=== PATIENT | male | born 1990 | race Caucasian/White ===

== ENCOUNTER 2017-02-15 10:22 | Emergency (ER) | payer OTHER ==
[2017-02-15 11:57] LABS: HEMOGLOBIN 10.6 gm/dl (14.0-17.5); RED BLOOD COUNT 3.27 M/UL (4.20-5.50); WHITE BLOOD COUNT 9.6 K/UL (4.5-11.0)
[2017-06-19] MEDS ORDERED: HYDRALAZINE HCL50 MG PO (09:21)
[2017-06-19] MEDS ORDERED: PHOSLO 667 MG667 MG PO (09:24)
[2017-06-19] MEDS ORDERED: BUDESONIDE EC3 MG PO (09:25)
== END 2017-02-15 17:35 ==
LOC: ER1 10:22
PROVIDERS: Emergency Medicine
DX: K52.9 Noninfective gastroenteritis and colitis, unspecified (principal); D69.6 Thrombocytopenia, unspecified; D64.9 Anemia, unspecified; I12.0 Hypertensive chronic kidney disease with stage 5 chronic kidney disease or end stage renal disease; N18.6 End stage renal disease; N28.89 Other specified disorders of kidney and ureter; G40.909 Epilepsy, unspecified, not intractable, without status epilepticus
CPT/HCPCS: 36415; 80053; 81001; 83605; 84484; 85025; 87040; 87086; 93005; 96361; 96374; 96375; 96376; 99284; J1956; J2270; J2405

== ENCOUNTER 2017-03-03 11:05 | Emergency (ER) | payer MEDICARE, OTHER ==
[2017-03-03 13:04] LABS: HEMOGLOBIN 12.1 gm/dl (14.0-17.5); RED BLOOD COUNT 3.81 M/UL (4.20-5.50); WHITE BLOOD COUNT 9.3 K/UL (4.5-11.0)
[2017-06-19] MEDS ORDERED: HYDRALAZINE HCL50 MG PO (09:21)
[2017-06-19] MEDS ORDERED: PHOSLO 667 MG667 MG PO (09:24)
[2017-06-19] MEDS ORDERED: BUDESONIDE EC3 MG PO (09:25)
== END 2017-03-03 19:17 | disposition home or self-care (01) ==
LOC: ER1 11:05
PROVIDERS: Specialist/Technologist Athletic Trainer
DX: K62.89 Other specified diseases of anus and rectum (principal); D69.6 Thrombocytopenia, unspecified; R11.0 Nausea; N18.6 End stage renal disease; F17.200 Nicotine dependence, unspecified, uncomplicated; Z99.2 Dependence on renal dialysis; Z79.891 Long term (current) use of opiate analgesic; Z79.899 Other long term (current) drug therapy
CPT/HCPCS: 36415; 80053; 83605; 83690; 83735; 84100; 85025; 93005; 96361; 96374; 96375; 99284; J2270; J2405

== ENCOUNTER 2017-03-05 20:55 | Inpatient (IN) | payer MEDICARE, OTHER ==
[~2017-03-05] VITALS: Ht 162.6 cm; Wt 55.9 kg
[2017-03-05 22:06] LABS: WHITE BLOOD COUNT 8.7 K/UL (4.5-11.0)
[2017-03-05 22:07] LABS: HEMOGLOBIN 8.9 gm/dl (14.0-17.5); RED BLOOD COUNT 2.86 M/UL (4.20-5.50)
[2017-03-06] MEDS ORDERED: NORVASC 5 MG TAB5 MG PO (02:50)
[2017-03-06] MEDS ORDERED: CALCIUM ACETAT667 MG PO (02:51)
[2017-03-06] MEDS ORDERED: COREG 12.5MG12.5 MG PO (02:52)
[2017-03-06] MEDS ORDERED: FAMOTIDINE20 MG PO (02:53)
[2017-03-06] MEDS ORDERED: LASIX 40 MG TAB40 MG PO (02:54)
[2017-03-06] MEDS ORDERED: HYDRALAZINE HCL50 MG PO (02:54)
[2017-03-06] MEDS ORDERED: ROXICODONE TAB 55 MG PO (02:55)
[2017-03-06 04:19] LABS: HEMOGLOBIN 7.1 gm/dl (14.0-17.5); WHITE BLOOD COUNT 6.7 K/UL (4.5-11.0)
[2017-03-06 04:22] LABS: RED BLOOD COUNT 2.25 M/UL (4.20-5.50)
[2017-03-07 06:00] LABS: RED BLOOD COUNT 2.98 M/UL (4.20-5.50); WHITE BLOOD COUNT 7.5 K/UL (4.5-11.0)
[2017-03-07 10:54] LABS: HEMOGLOBIN 9.3 gm/dl (14.0-17.5); RED BLOOD COUNT 3.08 M/UL (4.20-5.50); WHITE BLOOD COUNT 7.2 K/UL (4.5-11.0)
[2017-03-07 13:34] LABS: ACINETOBACTER BAUMANNII Not Detected (Negative); CANDIDA ALBICANS Not Detected (Negative); CANDIDA KRUSEI Not Detected (Negative); CANDIDA TROPICALIS Not Detected (Negative); ENTEROCOCCUS Not Detected (Negative); ESCHERICHIA COLI Not Detected (Negative); HAEMOPHILUS INFLUENZAE Not Detected (Negative); KLEBSIELLA OXYTOCA Not Detected (Negative); KLEBSIELLA PNEUMONIAE Not Detected (Negative); KPC-CARBAPENEM-RESISTANCE GENE Not Detected (Negative); PROTEUS Not Detected (Negative); PSEUDOMONAS AERUGINOSA Not Detected (Negative); SERRATIA MARCESANS Not Detected (Negative); STAPHYLOCOCCUS AUREUS Not Detected (Negative); STREP AGALACTIAE (GROUP B) Not Detected (Negative); STREP PYOGENES (GROUP A) Not Detected (Negative); STREPTOCOCCUS Not Detected (Negative); mecA (METHICILLIN RESIST GENE Not Detected (Negative); vanA/B (VANCOMYCIN RESIST GENE Not Detected (Negative)
[2017-03-07 14:47] LABS: STAPHYLOCOCCUS DETECTED (Negative)
[2017-03-07] MEDS ORDERED: FLAGYL500 MG PO (18:58)
[2017-03-07] MEDS ORDERED: PHENERGAN 25 MG25 M1 PO (18:58)
[2017-06-19] MEDS ORDERED: HYDRALAZINE HCL50 MG PO (09:21)
[2017-06-19] MEDS ORDERED: PHOSLO 667 MG667 MG PO (09:24)
[2017-06-19] MEDS ORDERED: BUDESONIDE EC3 MG PO (09:25)
== END 2017-03-07 19:14 | disposition home or self-care (01) | DRG 393 ==
LOC: ER1 20:55 → ZEROF 03-06 00:54 → MED SURG 4 03-06 00:54
PROVIDERS: Internal Medicine; Internal Medicine Nephrology; Student in an Organized Health Care Education/Training Program; ADMIT Hospitalist
DX: K62.89 Other specified diseases of anus and rectum (principal); N18.6 End stage renal disease; I12.0 Hypertensive chronic kidney disease with stage 5 chronic kidney disease or end stage renal disease; D61.818 Other pancytopenia; D69.6 Thrombocytopenia, unspecified; K52.9 Noninfective gastroenteritis and colitis, unspecified; Z99.2 Dependence on renal dialysis; F17.210 Nicotine dependence, cigarettes, uncomplicated; Z79.899 Other long term (current) drug therapy
CPT/HCPCS: 36415; 36430; 71010; 74000; 80053; 80202; 82607; 82746; 83010; 83605; 83615; 83690; 83735; 83921; 84100; 85007; 85025; 85027; 85045; 85610; 86850; 86900; 86901; 86920; 87040; 87077; 87150; 87186; 90935; 93005; 96361; 96374; 96375; 96376; 99284; J1956; J2270; J2405; J3370; J7030; J7040; J7070; P9016

== ENCOUNTER 2017-03-11 20:40 | Inpatient (IN) | payer MEDICARE, OTHER ==
[~2017-03-11] VITALS: Ht 162.6 cm; Wt 54.4 kg
[~2017-03-11 20:40] MED LIST: CALCIUM ACETAT667 MG PO; COREG 12.5MG12.5 MG PO; FAMOTIDINE20 MG PO; FLAGYL500 MG PO; HYDRALAZINE HCL50 MG PO; LASIX 40 MG TAB40 MG PO; NORVASC 5 MG TAB5 MG PO; PHENERGAN 25 MG25 M1 PO; ROXICODONE TAB 55 MG PO
[2017-03-11 22:58] LABS: RED BLOOD COUNT 4.05 M/UL (4.20-5.50); WHITE BLOOD COUNT 15.4 K/UL (4.5-11.0)
[2017-03-11 23:00] LABS: HEMOGLOBIN 12.4 gm/dl (14.0-17.5)
[2017-03-12 07:58] LABS: HEMOGLOBIN 9.1 gm/dl (14.0-17.5)
[2017-03-12] MEDS ORDERED: LEVAQUIN500 MG PO (10:20)
[2017-03-13 04:52] LABS: HEMOGLOBIN 8.8 gm/dl (14.0-17.5)
[2017-03-13 04:53] LABS: WHITE BLOOD COUNT 7.1 K/UL (4.5-11.0)
[2017-03-14 04:19] LABS: HEMOGLOBIN 8.1 gm/dl (14.0-17.5); RED BLOOD COUNT 2.7 M/UL (4.20-5.50); WHITE BLOOD COUNT 6.8 K/UL (4.5-11.0)
[2017-06-19] MEDS ORDERED: HYDRALAZINE HCL50 MG PO (09:21)
[2017-06-19] MEDS ORDERED: PHOSLO 667 MG667 MG PO (09:24)
[2017-06-19] MEDS ORDERED: BUDESONIDE EC3 MG PO (09:25)
== END 2017-03-14 17:00 | disposition home or self-care (01) | DRG 391 ==
LOC: ER1 20:40 → ZEROF 03-12 01:45 → MED SURG 4 03-12 01:45
PROVIDERS: Internal Medicine; Internal Medicine Infectious Disease; Physician Assistant; ADMIT Internal Medicine
DX: A09 Infectious gastroenteritis and colitis, unspecified (principal); N18.6 End stage renal disease; I12.0 Hypertensive chronic kidney disease with stage 5 chronic kidney disease or end stage renal disease; N02.8 Recurrent and persistent hematuria with other morphologic changes; R18.8 Other ascites; D63.1 Anemia in chronic kidney disease; D69.6 Thrombocytopenia, unspecified; Z99.2 Dependence on renal dialysis; Z79.899 Other long term (current) drug therapy; F17.200 Nicotine dependence, unspecified, uncomplicated; N25.0 Renal osteodystrophy
CPT/HCPCS: 36415; 80048; 80053; 82550; 82553; 82728; 83540; 83550; 83605; 83690; 83735; 83874; 83880; 84100; 84484; 85025; 85027; 86140; 87040; 90935; 90937; 93005; 96374; 96375; 99285; J0360; J1644; J1956; J2270; J2405; J2550; J7030

== ENCOUNTER 2017-03-19 10:32 | Observation (INO) | payer MEDICARE, OTHER ==
[~2017-03-19] VITALS: Ht 162.6 cm; Wt 55.9 kg
[~2017-03-19 10:32] MED LIST changes: +LEVAQUIN500 MG PO
[2017-03-19 11:23] LABS: RED BLOOD COUNT 4.52 M/UL (4.20-5.50); WHITE BLOOD COUNT 13.5 K/UL (4.5-11.0)
[2017-03-19 11:24] LABS: HEMOGLOBIN 13.7 gm/dl (14.0-17.5)
[2017-03-20 04:52] LABS: HEMOGLOBIN 8.2 gm/dl (14.0-17.5); RED BLOOD COUNT 2.77 M/UL (4.20-5.50); WHITE BLOOD COUNT 8.9 K/UL (4.5-11.0)
[2017-03-20] MEDS ORDERED: PERCOCET 5/325 T1 EA PO (19:48)
[2017-06-19] MEDS ORDERED: HYDRALAZINE HCL50 MG PO (09:21)
[2017-06-19] MEDS ORDERED: PHOSLO 667 MG667 MG PO (09:24)
[2017-06-19] MEDS ORDERED: BUDESONIDE EC3 MG PO (09:25)
== END 2017-03-20 20:35 | disposition home or self-care (01) ==
LOC: ER1 10:32 → ZEROF 15:22 → MED SURG 4 15:22
PROVIDERS: Emergency Medicine; ADMIT Family Medicine
DX: K52.9 Noninfective gastroenteritis and colitis, unspecified (principal); R18.8 Other ascites; D69.6 Thrombocytopenia, unspecified; R10.9 Unspecified abdominal pain; D63.1 Anemia in chronic kidney disease; I12.9 Hypertensive chronic kidney disease with stage 1 through stage 4 chronic kidney disease, or unspecified chronic kidney disease; N18.6 End stage renal disease; D61.818 Other pancytopenia; Z87.438 Personal history of other diseases of male genital organs; Z79.891 Long term (current) use of opiate analgesic; Z79.899 Other long term (current) drug therapy
CPT/HCPCS: 36415; 80048; 80053; 82150; 83605; 83690; 83735; 85025; 90935; 90937; 96365; 96366; 96374; 96375; 96376; 99285; G0257; G0378; J0696; J1644; J1956; J2270; J2405; J2550; J7030; J7050

== ENCOUNTER 2017-04-04 08:12 | Inpatient (IN) | payer MEDICARE, OTHER ==
[~2017-04-04] VITALS: Ht 162.6 cm; Wt 54.4 kg
[~2017-04-04 08:12] MED LIST changes: +PERCOCET 5/325 T1 EA PO
[2017-04-04 09:31] LABS: RED BLOOD COUNT 3.76 M/UL (4.20-5.50); WHITE BLOOD COUNT 15.7 K/UL (4.5-11.0)
[2017-04-04 14:15] LABS: CAMPYLOBACTER Not Detected (Negative); CLOSTRIDIUM DIFFICILE TOX A/B Not Detected (Negative); PLESIOMONAS SHIGELLOIDES Not Detected (Negative); SALMONELLA Not Detected (Negative)
[2017-04-04 14:16] LABS: ADENOVIRUS F 40/41 Not Detected (Negative); ASTROVIRUS Not Detected (Negative); CRYPTOSPORIDIUM Not Detected (Negative); E.COLI 0157 Not Detected (Negative); ENTAMOEBA HISTOLYTICA Not Detected (Negative); ENTEROAGGREGATIVE E.COLI (EAEC Not Detected (Negative); ENTEROPATHOGENIC E.COLI (EPEC) Not Detected (Negative); ENTEROTOXIGENIC E.COLI (ETEC) Not Detected (Negative); GIARDIA LAMBLIA Not Detected (Negative); NOROVIRUS GI/GII Not Detected (Negative); ROTOVIRUS A Not Detected (Negative); SAPOVIRUS Not Detected (Negative); SHIG/ENTEROINVAS.ECOLI (EIEC) Not Detected (Negative); SHIGA-LIK TOX.PRO.E.COLI (STEC Not Detected (Negative); VIBRIO Not Detected (Negative); VIBRIO CHOLERAE Not Detected (Negative); YERSINIA ENTEROCOLITICA Not Detected (Negative)
[2017-04-05 04:30] LABS: HEMOGLOBIN 10.1 gm/dl (14.0-17.5); RED BLOOD COUNT 3.47 M/UL (4.20-5.50)
[2017-04-05 04:39] LABS: WHITE BLOOD COUNT 10.5 K/UL (4.5-11.0)
[2017-04-05 04:41] LABS: BUN/CREATININE RATIO 3 (0-10)
[2017-06-19] MEDS ORDERED: HYDRALAZINE HCL50 MG PO (09:21)
[2017-06-19] MEDS ORDERED: PHOSLO 667 MG667 MG PO (09:24)
[2017-06-19] MEDS ORDERED: BUDESONIDE EC3 MG PO (09:25)
== END 2017-04-05 16:35 | disposition left against medical advice (07) | DRG 682 ==
LOC: ER1 08:12 → ZEROF 12:30 → CCU 12:30
PROVIDERS: Emergency Medicine; ADMIT Family Medicine
PROC: 5A1D00Z (ICD-10-PCS; principal; 2017-04-05)
DX: I12.0 Hypertensive chronic kidney disease with stage 5 chronic kidney disease or end stage renal disease (principal); N18.6 End stage renal disease; N02.8 Recurrent and persistent hematuria with other morphologic changes; I16.0 Hypertensive urgency; R10.9 Unspecified abdominal pain; Z99.2 Dependence on renal dialysis; Z91.15 Patient's noncompliance with renal dialysis; R11.2 Nausea with vomiting, unspecified; R19.7 Diarrhea, unspecified; F17.210 Nicotine dependence, cigarettes, uncomplicated; D64.9 Anemia, unspecified; Z86.19 Personal history of other infectious and parasitic diseases; R93.5 Abnormal findings on diagnostic imaging of other abdominal regions, including retroperitoneum
CPT/HCPCS: 36415; 76700; 80053; 82150; 83605; 83690; 84132; 85025; 87507; 90935; 96374; 96375; 96376; 99285; J0360; J1644; J1956; J2270; J2405; J7030

== ENCOUNTER 2017-04-08 17:37 | Inpatient (IN) | payer MEDICARE, OTHER ==
[~2017-04-08] VITALS: Ht 162.6 cm; Wt 58.1 kg
[2017-04-08 21:31] LABS: RED BLOOD COUNT 3.39 M/UL (4.20-5.50); WHITE BLOOD COUNT 15.7 K/UL (4.5-11.0)
[2017-04-09 07:05] LABS: HEMOGLOBIN 9.5 gm/dl (14.0-17.5); RED BLOOD COUNT 3.23 M/UL (4.20-5.50); WHITE BLOOD COUNT 17.1 K/UL (4.5-11.0)
[2017-04-10 06:13] LABS: RED BLOOD COUNT 2.33 M/UL (4.20-5.50); WHITE BLOOD COUNT 8.4 K/UL (4.5-11.0)
[2017-04-10 06:18] LABS: HEMOGLOBIN 6.9 gm/dl (14.0-17.5)
[2017-04-11 06:05] LABS: WHITE BLOOD COUNT 7.6 K/UL (4.5-11.0)
[2017-04-11 06:14] LABS: HEMOGLOBIN 9.8 gm/dl (14.0-17.5); RED BLOOD COUNT 3.33 M/UL (4.20-5.50)
[2017-04-11 19:06] LABS: ASTROVIRUS Not Detected (Negative); CAMPYLOBACTER Not Detected (Negative); CLOSTRIDIUM DIFFICILE TOX A/B Not Detected (Negative); CRYPTOSPORIDIUM Not Detected (Negative); E.COLI 0157 Not Detected (Negative); ENTAMOEBA HISTOLYTICA Not Detected (Negative); ENTEROAGGREGATIVE E.COLI (EAEC Not Detected (Negative); ENTEROPATHOGENIC E.COLI (EPEC) Not Detected (Negative); ENTEROTOXIGENIC E.COLI (ETEC) Not Detected (Negative); GIARDIA LAMBLIA Not Detected (Negative); NOROVIRUS GI/GII Not Detected (Negative); PLESIOMONAS SHIGELLOIDES Not Detected (Negative); ROTOVIRUS A Not Detected (Negative); SALMONELLA Not Detected (Negative); SAPOVIRUS Not Detected (Negative); SHIG/ENTEROINVAS.ECOLI (EIEC) Not Detected (Negative); SHIGA-LIK TOX.PRO.E.COLI (STEC Not Detected (Negative); VIBRIO Not Detected (Negative); VIBRIO CHOLERAE Not Detected (Negative); YERSINIA ENTEROCOLITICA Not Detected (Negative)
[2017-04-12 04:49] LABS: RED BLOOD COUNT 3.09 M/UL (4.20-5.50); WHITE BLOOD COUNT 6.9 K/UL (4.5-11.0)
[2017-04-12 10:00] LABS: ADENOVIRUS F 40/41 DETECTED (Negative)
[2017-04-13 05:25] LABS: HEMOGLOBIN 9.4 gm/dl (14.0-17.5); RED BLOOD COUNT 3.25 M/UL (4.20-5.50); WHITE BLOOD COUNT 7.6 K/UL (4.5-11.0)
[2017-04-14 06:58] LABS: HEMOGLOBIN 9.1 gm/dl (14.0-17.5); RED BLOOD COUNT 3.15 M/UL (4.20-5.50); WHITE BLOOD COUNT 6.6 K/UL (4.5-11.0)
[2017-04-15 06:22] LABS: HEMOGLOBIN 9.1 gm/dl (14.0-17.5); RED BLOOD COUNT 3.14 M/UL (4.20-5.50); WHITE BLOOD COUNT 7.6 K/UL (4.5-11.0)
[2017-04-16] MEDS ORDERED: CATAPRES0.3 MG PO (13:32)
[2017-04-16] MEDS ORDERED: PERCOCET 5-3251 EACH PO (13:33)
[2017-04-16] MEDS ORDERED: SENOKOT-S TABL1 EACH PO (13:33)
[2017-04-16] MEDS ORDERED: MIRALAX PACK 171 PKT PO (13:34)
[2017-04-16] MEDS ORDERED: MYCOSTATIN100000 UTS PO (13:35)
[2017-04-16] MEDS ORDERED: PROTONIX40 MG PO (13:36)
[2017-04-16] MEDS ORDERED: TYLENOL 325MG325 MG PO (13:37)
[2017-06-19] MEDS ORDERED: HYDRALAZINE HCL50 MG PO (09:21)
[2017-06-19] MEDS ORDERED: PHOSLO 667 MG667 MG PO (09:24)
[2017-06-19] MEDS ORDERED: BUDESONIDE EC3 MG PO (09:25)
== END 2017-04-16 14:08 | disposition home or self-care (01) | DRG 391 ==
LOC: ER1 17:37 → M/S 04-09 00:19 → ZEROF 04-09 00:19 → M/S 04-09 17:17
PROVIDERS: Internal Medicine; Internal Medicine Gastroenterology; Internal Medicine Infectious Disease; Internal Medicine Nephrology; Preventive Medicine Occupational Medicine; ADMIT Internal Medicine
PROC: 30233N1 Transfusion of Nonautologous Red Blood Cells into Peripheral Vein, Percutaneous Approach (ICD-10-PCS; 2017-04-10)
PROC: 5A1D60Z (ICD-10-PCS; 2017-04-10)
PROC: 0DBF8ZX Excision of Right Large Intestine, Via Natural or Artificial Opening Endoscopic, Diagnostic (ICD-10-PCS; principal; 2017-04-14 14:45)
PROC: 0DBB8ZX Excision of Ileum, Via Natural or Artificial Opening Endoscopic, Diagnostic (ICD-10-PCS; principal; 2017-04-14 14:45)
DX: K52.9 Noninfective gastroenteritis and colitis, unspecified (principal); N18.6 End stage renal disease; I12.0 Hypertensive chronic kidney disease with stage 5 chronic kidney disease or end stage renal disease; R18.8 Other ascites; D69.3 Immune thrombocytopenic purpura; B37.81 Candidal esophagitis; K63.3 Ulcer of intestine; K29.80 Duodenitis without bleeding; Z99.2 Dependence on renal dialysis; I16.0 Hypertensive urgency; N25.89 Other disorders resulting from impaired renal tubular function; D63.1 Anemia in chronic kidney disease; E87.6 Hypokalemia; K59.09 Other constipation; Z91.19 Patient's noncompliance with other medical treatment and regimen
CPT/HCPCS: 36415; 80048; 80053; 83690; 83735; 84132; 85025; 85027; 86140; 86850; 86900; 86901; 86920; 87507; 89055; 90937; 93971; 96365; 96366; 96367; 96375; 96376; 99285; C9113; J0360; J1644; J1956; J2250; J2270; J2405; J2550; J3010; J3370; J7030; J7040; J7050; P9016